=== PATIENT | female | born 1975 | race Caucasian/White ===

== ENCOUNTER → 2017-08-10 | Day surgery (SDC) | payer OTHER ==
[~2017-08-10] VITALS: Ht 160 cm; Wt 72.6 kg
[~2017-08-10] MED LIST: CELEXA40 MG PO; ESTRADIOL 1 MG T1 M1 PO; FLEXERIL PO; OXYCODONE HCL10 MG PO; PHENERGAN 25 MG25 M1 PO; RIZATRIPTAN10 MG PO; TOPAMAX50 MG PO
--- NOTE | ~2017-08-10 | O ---
[address] [address] OPERATIVE REPORT Name: HOPE MOSQUERA Room #: REG [facility].#: [id number] Admission: 08/10/17 Attend Phys: Rainer Cuba MD Discharge: Date of : 71 Report #: [id number] THIS REPORT FOR: //name// CC: Óscar Cuba DATE OF SERVICE: 08/10/2017 SERVICE: Orthopedics. FACILITY: [facility]. SURGEON: Rainer Cuba MD CABINET[employer]KER MAINTENANCE: None. PREOPERATIVE DIAGNOSES: 1. Left hip pain. 2. Left hip femoroacetabular impingement. 3. Left hip labral tear. POSTOPERATIVE DIAGNOSES: 1. Left hip pain. 2. Left hip femoroacetabular impingement. 3. Left hip labral tear. PROCEDURE: 1. Left hip arthroscopic labral repair. 2. Left hip arthroscopic Cam osteochondroplasty for intraarticular impingement. 3. Left hip arthroscopic subspine acetabuloplasty for extraarticular impingement. ANESTHESIA: General with regional. COMPLICATIONS: None. DRAINS: None. SPECIMENS: None. FINDINGS: 1. Acetabular labral repair performed with [place] CinchLock suture anchors with tape. 2. Cam osteoplasty performed under fluoroscopic and arthroscopic confirmation. 3. Capsule closure performed. [address] [address] OPERATIVE REPORT Name: HOPE MOSQUERA [id number] Admission: 08/10/17 Attend Phys: Rainer Cuba MD Discharge: Date of : 71 Report #: [id number] HISTORY AND INDICATIONS: The patient is a 42-year-old female with a longstanding history of persistent progressive left hip pain that had been treated conservatively for quite some time. She presented after experiencing several years of hip pain for definitive treatment. She did have an intra-articular injection, which provided temporary relief, but her pain recurred. She did not have any significant benefit from trochanteric injections. She had preoperative imaging, which was indicative of femoroacetabular impingement with the alpha angle of 72 degrees, a Tonnis grade of 0 and well maintained joint spaces. There was also prominence of the AIIS suggestive of subspine extraarticular impingement process. The risks, benefits, alternatives and indications for surgery were discussed with her in detail after she had failed conservative measures to include also activity modification, rest and therapy. Risks include but not limited to pain, bleeding, infection, injury to nerves or blood vessels, persistent pain despite surgical intervention, failure of any repairs or reconstructions, progression of any preexisting chondral injury, stiffness, need for further surgery as well as complications related to anesthesia such as stroke, heart attack, pulmonary complications, thromboembolic disease and . Despite these risks, she wished to proceed. PROCEDURE IN DETAIL: After left lower extremity was correctly identified in the preoperative holding area as the operative extremity, the patient was taken to the operating room where general anesthesia was induced without complication. She was padded appropriately. Prophylactic antibiotics were administered at appropriate time. Bilateral lower extremities were placed in traction boot apparatus and then I mapped out the femoral head and neck junction on the C-arm. She had a Cam deformity extending from approximately the 15 degree to 60 degree position and this had an alpha angle maximal of about 70-75 degrees consistent with Cam impingement. The left leg was then prepped and draped in standard sterile fashion. Time-out procedure was performed and traction was then applied to left leg. Standard anterior lateral viewing portal was established followed by mid anterior working portal. Transverse capsulotomy was performed. Diagnostic arthroscopy revealed clear evidence of an acetabular labral tear with some chondral labral disruption. The articular cartilage was otherwise intact on both the femur and the acetabulum. The capsule was reflected off the dorsal side of the labrum to expose the subspine extraarticular impingement lesion, which was then resected with the bur and then confirmed under fluoroscopy. The bur was then used to abrade the acetabular rim to create a bleeding surface for labral refixation and then the [place] CinchLock suture anchors were utilized to repair the acetabular labrum. The sutures were tensioned appropriately in order to restore the anatomic position of the acetabular labrum and then traction was let down. The hip was then assessed in the peripheral compartment and the Cam deformity was then resected with a Cam osteoplasty in a standard fashion using fluoroscopy for confirmation. After the resection was performed, the instruments were removed from the hip. C-arm was used to assess the resection, identified some [address] [address] OPERATIVE REPORT Name: HOPE MOSQUERA Room #: [facility] [place]#: [id number] Admission: 08/10/17 Attend Phys: Rainer Cuba MD Discharge: Date of : 71 Report #: [id number] additional area that needed to be resected to complete the Cam osteoplasty. I placed the instruments back in the hip and then completed the Cam osteoplasty. When the resection was felt to be completed, final x-rays were then taken and then the capsule was closed with a total of three #2 Vicryl sutures. Instruments were then removed from the hip. The portal sites were closed with a deep, followed by superficial Monocryl sutures. Sterile dressing was applied. The patient was then awakened from anesthesia and taken to recovery room in stable condition. There were no complications and all counts were reported as correct. <ELECTRONICALLY SIGNED> By: Rainer Cuba MD 08/17/17 2030 1744 1842 Rainer Cuba MD /corinna
--- NOTE | ~2017-08-10 | EKG ---
[address] [address] ELECTROCARDIOGRAM REPORT Name: HOPE MOSQUERA Room #: REG [facility]#: [id number] Admission: 08/10/17 Attend Phys: Rainer Cuba MD Discharge: Date of : 71 Report #: [id number] THIS REPORT FOR: //name// [facility] Test Date: 2017-08-10 Test Time: 10:22:24 Pat Name: HOPE MOSQUERA Department: Room: Gender: F Wax Cutter: IGGY : 1975 Requested By: Rainer Cuba Order Number: [id number] MD: Juan Mora Measurements Intervals [place] Rate: 75 P: 16 TN: 126 QRS: 4 QRSD: 93 T: 38 QT: 393 QTc: 439 Interpretive Statements Sinus rhythm Low voltage, precordial leads No previous ECG available for comparison Electronically Signed On 08-10-2017 21:15:34 KNOWLEDGE ENGINEER by Juan Mora [email or web address] <ELECTRONICALLY SIGNED> By: Juan Mora MD 08/10/17 2115 1022 1022 MD GEM Jules
[2017-08-10 11:39] VITALS: BP 119/89
[2017-08-10 13:22] VITALS: BP 119/89
== END | disposition home or self-care (01) ==
LOC: OR 09:59
DX: M25.852 Other specified joint disorders, left hip (principal); S73.192A Other sprain of left hip, initial encounter; G43.909 Migraine, unspecified, not intractable, without status migrainosus; F41.8 Other specified anxiety disorders; Z87.891 Personal history of nicotine dependence; Z90.49 Acquired absence of other specified parts of digestive tract; Z98.890 Other specified postprocedural states; Z88.0 Allergy status to penicillin; Z79.899 Other long term (current) drug therapy; Z79.891 Long term (current) use of opiate analgesic; X58.XXXA Exposure to other specified factors, initial encounter; Y93.89 Activity, other specified; Y92.89 Other specified places as the place of occurrence of the external cause; Y99.8 Other external cause status
CPT/HCPCS: 50010; 50101; 50386; 51538; 52298; 52304; 55430; 56524; 56527; 57092; 62110; 62900; 64043; 65060; 70005